=== PATIENT | female | born 1985 | race Caucasian/White ===

== ENCOUNTER 2018-08-26 21:35 | Emergency (ER) | payer OTHER ==
[2018-08-26] MEDS ORDERED: NORMAL SALINE 1000 ML 1,000 ML IV ONE (22:13)
[2018-08-26 22:39] LABS: ABSOLUTE EOSINOPHILS # (AUTO) 0.1 10^3/uL (0.0-0.6); ABSOLUTE LYMPHOCYTES (AUTO) 1.6 10^3/uL (0.5-4.7); ABSOLUTE MONOCYTES (AUTO) 0.8 10^3/uL (0.1-1.4); ABSOLUTE NEUT (AUTO) 5.8 10^3/uL (1.7-8.2); BASOPHILS % (AUTO) 0.5 % (0-2); EOSINOPHILS % (AUTO) 1.2 % (0-6); HEMATOCRIT 36.3 % (36.0-47.0); HEMOGLOBIN 12.4 g/dL (12.0-15.5); LYMPHOCYTES % (AUTO) 18.9 % (13-45); MEAN CORPUSCULAR HEMOGLOBIN 30.4 pg (27.0-33.4); MEAN CORPUSCULAR HGB CONC 34.3 g/dL (32.0-36.0); MEAN CORPUSCULAR VOLUME 89 fl (80-97); MONOCYTES % (AUTO) 9.7 % (3-13); PLATELET COUNT 218 10^3/uL (150-450); RED BLOOD COUNT 4.09 10^6/uL (3.72-5.28); RED CELL DISTRIBUTION WIDTH 12.4 % (11.5-14.0); SEGMENTED NEUTROPHILS % (AUTO) 69.7 % (42-78); TOTAL CELLS COUNTED % (AUTO) 100 %; WHITE BLOOD COUNT 8.4 10^3/uL (4.0-10.5)
[2018-08-26 23:17] LABS: FREE T4 (FREE THYROXINE) 1.14 ng/dL (0.78-2.19)
[2018-08-26 23:31] LABS: THYROID STIMULATING HORMONE 2.01 uIU/mL (0.47-4.68)
[2018-08-26] MEDS ORDERED: METOPROLOL TARTRATE 25 MG TABLET PO ONE (23:34)
[2018-08-26 23:35] LABS: ALANINE AMINOTRANSFERASE 21 U/L (9-52); ALBUMIN 4.4 g/dL (3.5-5.0); ALKALINE PHOSPHATASE 69 U/L (38-126); ANION GAP 13 (5-19); ASPARTATE AMINO TRANSFERASE 17 U/L (14-36); BILIRUBIN,DIRECT 0.1 mg/dL (0.0-0.4); BILIRUBIN,TOTAL 0.4 mg/dL (0.2-1.3); BLOOD UREA NITROGEN 9 mg/dL (7-20); CALCIUM 9.5 mg/dL (8.4-10.2); CARBON DIOXIDE 24 mmol/L (22-30); CHLORIDE 105 mmol/L (98-107); GLUCOSE 103 mg/dL (75-110); SODIUM 141.7 mmol/L (137-145); TOTAL PROTEIN 7.4 g/dL (6.3-8.2)
[2018-08-26 23:52] LABS: APPEARANCE,URINE SLIGHTLY-CLOUDY; BILIRUBIN,URINE NEGATIVE (NEGATIVE); COLOR,URINE YELLOW; GLUCOSE, URINE NEGATIVE (NEGATIVE); KETONES,URINE 20 mg/dL (NEGATIVE); LEUKOCYTE ESTERASE,URINE NEGATIVE (NEGATIVE); NITRITE,URINE NEGATIVE (NEGATIVE); PROTEIN,URINE 30 mg/dL (NEGATIVE); URINE SPECIFIC GRAVITY 1.015; UROBILINOGEN,URINE NEGATIVE mg/dL (<2.0)
--- NOTE | 2018-08-27 | ER Document Report ---
ED Cardiac - General Chief Complaint: Palpitations Stated Complaint: WEAKNESS,FAST HEART RATE Time Seen by Provider: 08/26/18 21:54 Mode of Arrival: Ambulatory Information source: Patient TRAVEL OUTSIDE OF THE [place] IN LAST 30 DAYS: No - HPI Patient complains to provider of: Palpitations - 33-year-old female who presents for evaluation of palpitations. She has a history of lupus nephritis which is being treated with dietary management though she is followed by [facility] as she had previously been told she had organ involvement including her kidneys as well as her liver who has had persistent intermittent palpitations over the last several years as well as tachycardia for which she has been evaluated including wearing a Holter monitor without an obvious cause being identified that presents for evaluation of a sensation of palpitations today while she was at nursing clinicals. She was at breakfast felt as if she was having palpitations took her heart rate at which time it seemed to be approximately 130 bpm. She waited the rest of the day and then arrived in the emergency department for further evaluation. She does not take any medication to try and help with this. Previously she had been treated with metoprolol to try and help with her heart rate and blood pressure but was taken off several months ago because she was doing okay. Denies any fever or chills, cough, chest pain, back pain, abdominal pain diarrhea constipation dysuria fevers. She has had very similar episodes in the past. She denies any illicit drug use does endorse occasional caffeine consumption. Use of: Caffeine - Related Data Allergies/Adverse Reactions: levofloxacin [From Levaquin] Allergy (Verified 06/06/13 01:30) Penicillins Allergy (Verified 06/06/13 01:30) Sulfa (Sulfonamide Antibiotics) Allergy (Verified 06/06/13 01:30) control Allergy (Uncoded 06/06/13 01:30) Past Medical History - General Information source: Patient - Social History Smoking Status: Never Smoker Drug Abuse: None Lives with: Spouse/Significant other Family History: Reviewed & Not Pertinent Patient has suicidal ideation: No Patient has homicidal ideation: No - Past Medical History Cardiac Medical History: Reports: Hx Hypertension - side effect of her medication Pulmonary Medical History: Reports: Hx Asthma Neurological Medical History: Reports: Hx Migraine, Hx Seizures Renal/ Medical History: Denies: Hx Peritoneal Dialysis Past Surgical History: Reports: Hx Kidney (Renal Surgery) - biopsy - Immunizations Immunizations up to date: Yes Hx Diphtheria, Pertussis, Tetanus Vaccination: Yes Review of Systems - Review of Systems -: Yes All other systems reviewed and negative Physical Exam - Vital signs Vitals: Temp Pulse Resp BP Pulse Ox 98.7 F 116 H 20 131/74 H 100 08/26/18 21:40 08/26/18 21:40 08/26/18 21:40 08/26/18 21:40 08/26/18 21:40 Interpretation: Tachycardic - General General appearance: Appears well In distress: None - HEENT Head: Normocephalic Eyes: Normal Conjunctiva: Normal Cornea: Normal Extraocular movements intact: Yes Eyelashes: Normal Pupils: PERRL - Respiratory Respiratory status: No respiratory distress Chest status: Nontender Breath sounds: Normal Chest palpation: Normal - Cardiovascular Rhythm: Tachycardia Heart sounds: Normal auscultation Murmur: No - Abdominal Inspection: Normal Distension: No distension Bowel sounds: Normal Tenderness: Nontender Organomegaly: No organomegaly - Back Back: Normal, Nontender - Extremities General upper extremity: Normal inspection, Nontender, Normal color, Normal ROM , Normal temperature General lower extremity: Normal inspection, Nontender, Normal color, Normal ROM , Normal temperature, Normal weight bearing. No: Jass's sign - Neurological Neuro grossly intact: Yes Cognition: Normal Orientation: AAOx4 [place] Coma Scale Eye Opening: Spontaneous [place] Coma Scale Verbal: Oriented [place] Coma Scale Motor: Obeys Commands James Coma Scale Total: 15 Speech: Normal Motor strength normal: LUE, RUE, LLE, RLE Sensory: Normal - Psychological Associated symptoms: Normal affect, Normal mood Course - Re-evaluation Re-evalutation: 08/28/18 00:30 Is a 33-year-old female presents for persistent tachycardia, she has had palpitations in the past for which she is been seen and evaluated and had a Holter monitor done. They have also tested her thyroid, they followed her for a myriad of other issues and previously she had been on metoprolol as she has had persistent tachycardia in the past with an unknown etiology. On presentation today she does demonstrate tachycardia. We will plan for initiation of monitoring in emergency department, testing of thyroid, chemistry, count as potential underlying anemia or derangement metabolites could underlie this. We will also plan for an EKG markers of cardiac damage. We will perform bedside echocardiogram as he should she has been told in the past that she had a pericardial effusion many years prior when she was told she had lupus nephritis. Patient's EKG demonstrates sinus tachycardia. Her CBC is unremarkable, her chemistry including renal function electrolytes and liver function tests are all within normal limits. Her troponin is negative. An echo at the bedside demonstrated what appeared to be a normal ejection fraction with tachycardia no appreciable septal bowing and a normal right ventricle. There is no appreciable pericardial effusion identified. Because of the persistent nature of this patient's palpitations and tachycardia seems to be a chronic issue with an unknown etiology. It could have its roots in her complex past medical history we will plan for a trial of metoprolol. While in emergency department the patient did not have any appreciable episodes of arrhythmia on monitor, she noted intermittent sensations of palpitations however while on monitor which did not correlate to any obvious abnormality. Following administration of metoprolol patient said that it felt as if her heart rate was slower, it did improve to the low 100 range. She was symptom-free at this time. She had contacted her primary physician for follow-up on Wednesday morning prior to presentation here, I do believe it is appropriate for this patient obtain normal outpatient follow-up though will administer her a prescription of metoprolol for rate control in the outpatient setting. Because of the indolent nature of this patient's presentation I believe it is exceptionally unlikely that this represents a more serious underlying cause such as pneumothorax, [place], or pulmonary embolism. The patient agreed with the current course of action, does not wish to pursue further diagnostics at this time. - Vital Signs Vital signs: Temp Pulse Resp BP Pulse Ox 98.7 F 116 H 17 107/74 99 08/26/18 21:40 08/26/18 21:40 08/27/18 00:31 08/27/18 00:31 08/27/18 00:31 - Laboratory Result Diagrams: 08/26/18 22:21 08/26/18 22:21 Laboratory results interpreted by me: 08/26/18 23:36 Urine Protein 30 H Urine Ketones 20 H Urine Blood SMALL H Discharge - Discharge Clinical Impression: Palpitations Condition: Good Disposition: HOME, SELF-CARE Instructions: Beta Blockers ([facility]), Palpitations (Irregular or Rapid Heartrate) ([facility]) Additional Instructions: You were seen today in the emergency department for your palpitations. You had an evaluation including a physical exam as well as an EKG and cardiac monitoring. We tested your blood for your liver tests, kidney tests, thyroid tests all of which were normal. Your CBC was normal. While on monitor you did not have any episodes of abnormal heartbeats that he did have a slightly elevated heart rate. You were given a dose of metoprolol to help with this which she said did help. We will plan to treat your palpitations utilizing metoprolol. It is important that you follow-up this week with some provider to help provide your care. Prescriptions: Metoprolol Tartrate [Lopressor 25 mg Tablet] 12.5 mg PO Q12 #40 tab Referrals: HILARY VILLARREAL MD [Primary Care Provider] - Follow up as needed
--- NOTE | 2018-08-27 00:18 | EKG REPORT ---
SEVERITY:- OTHERWISE NORMAL ECG - SINUS TACHYCARDIA : Confirmed by: Hussein Schwarz 27-Aug-2018 00:17:24
[2018-08-27 00:36] VITALS: BP 107/74
== END 2018-08-27 00:36 | disposition home or self-care (01) ==
LOC: ER 21:35
DX: R00.2 Palpitations (principal); R00.0 Tachycardia, unspecified; M32.14 Glomerular disease in systemic lupus erythematosus; J45.909 Unspecified asthma, uncomplicated; Z88.1 Allergy status to other antibiotic agents; Z88.0 Allergy status to penicillin; Z88.2 Allergy status to sulfonamides; Z88.8 Allergy status to other drugs, medicaments and biological substances
CPT/HCPCS: 93005; 99285; 96360; 36415; 84439; 84443; 85025; 81025; 80053; 81001; 84484; 93010; J7030